=== PATIENT | female | born 1995 | race African-American/Black ===

== ENCOUNTER 2017-10-09 08:58 | Emergency (ER) | payer OTHER ==
[~2017-10-09] VITALS: Ht 157.5 cm; Wt 59.0 kg
[2017-10-09 09:05] VITALS: BP 122/80
[2017-10-09] MEDS ORDERED: MONONESSA1 EACH PO (09:09)
[2017-10-09] MEDS ORDERED: TOBREX3.5 GM OPHTHALMIC (09:20)
== END 2017-10-09 09:58 | disposition home or self-care (01) ==
LOC: ER 08:58
DX: H01.004 Unspecified blepharitis left upper eyelid (principal)

== ENCOUNTER → 2018-12-09 | Outpatient (CLI) | payer OTHER ==
[~2018-12-09] MED LIST: MONONESSA1 EACH PO; TOBREX3.5 GM OPHTHALMIC
== END ==
LOC: CAT 15:47
DX: J32.0 Chronic maxillary sinusitis (principal); R43.0 Anosmia

== ENCOUNTER 2020-01-22 09:02 | Emergency (ER) | payer OTHER ==
[~2020-01-22] VITALS: Ht 152.4 cm; Wt 68.0 kg
[2020-01-22] MEDS ORDERED: FLEXERIL PO (11:41)
[2020-01-22 12:05] VITALS: BP 120/75
== END 2020-01-22 12:13 | disposition home or self-care (01) ==
LOC: ER 09:02
DX: M54.2 Cervicalgia (principal); M25.512 Pain in left shoulder; M79.602 Pain in left arm; Z79.2 Long term (current) use of antibiotics; V43.52XA Car driver injured in collision with other type car in traffic accident, initial encounter; Y93.89 Activity, other specified; Y92.410 Unspecified street and highway as the place of occurrence of the external cause; Y99.8 Other external cause status

== ENCOUNTER → 2020-03-04 | Outpatient (CLI) | payer OTHER ==
[~2020-03-04] MED LIST changes: +FLEXERIL PO
== END ==
LOC: LAB 09:16
PROVIDERS: ATTEND Nurse Practitioner
DX: Z20.828 Contact with and (suspected) exposure to other viral communicable diseases (principal)